=== PATIENT | male | born 1945 | race Caucasian/White ===

== ENCOUNTER 2016-06-05 11:26 | Inpatient (IN) | payer MEDICARE, BC, OTHER ==
--- NOTE | 2016-06-05 13:10 | CR ---
Chest 2V HISTORY: Atrial fibrillation COMPARISON: 04/29/2015. FINDINGS: Linear scar peripheral left midlung zone. Obscured left cardiac border compatible with lef t lingular infiltrate. The right lung is clear. Mild hyperinflation. Impression: Infiltrate obscuring the left cardiac border new from the previous study.
[2016-06-05] MEDS: Dextrose 5%-0.9% NaCl 1,000 ML IV SCH (15:46)
[2016-06-05] MEDS: Levofloxacin/Dextrose 5%-Water 500 MG in Premix Bag 1 BAG IV SCH (15:47)
[2016-06-05] MEDS ORDERED: Sodium Chloride 0.9% 500 ML IV ONE (17:00)
[2016-06-05] MEDS: cefTRIAXone 1 GM in Sodium Chloride 0.9% 50 ML IV SCH (17:02)
[2016-06-05] MEDS ORDERED: Digoxin 500 MCG/2 ML Amp IVPUSH ONE (18:06)
[2016-06-05] MEDS ORDERED: Acetaminophen 325 MG Tab PO PRN (18:07)
[2016-06-05] MEDS: Albuterol/Ipratropium 3.0-0.5 MG/3 ML Neb Soln INH SCH (21:03)
--- NOTE | 2016-06-05 21:40 | PCM.HP ---
H&P History of Present Illness - General Date of Service: 06/05/16 Source of Information: Patient History Limitations: Reports: No limitations, Respiratory distress - History of Present Illness Initial Comments - Free Text/Narative: Yoni came into the office not feeling well stating that he was short of breath and he was using multiple inhalers in order to get his air. He was very weak and very dizzy when he would stand up. I had seen him last week and he was in atrial fibrillation with tachycardic response. I changed his medicine started him on anticoagulation medication. His blood pressure in the office was down to 80 systolic and very weak when he would stand. I feel he was not safe to drive home and brought into the hospital. He said his heart has been irregular for years but the cardiograms in the office have always been normal sinus rhythm. He states that the Dulera would make his heart go fast but he would help his breathing dramatically. Onset of Symptoms: Reports: gradual Duration of Symptoms: Reports: Day(s): Location: Reports: chest Severity: severe Improves with: Reports: Rest Worsens with: Reports: Movement Context: Reports: activity/exercise, exertion Associated Symptoms: Reports: shortness of breath, weakness - Related Data Allergies/Adverse Reactions: Allergies Allergy/AdvReac Type Severity Reaction Status Date / Time bee sting Allergy Swelling Uncoded 10/05/13 14:03 Home Medications: Home Meds Betamethasone Dipropionate [Diprosone 0.05% Oint] 1 applic TOP DAILY 10/05/13 [ History] Lisinopril 20 mg PO DAILY 10/05/13 [History] Tiotropium [Spiriva Handihaler] 1 puff INH DAILY 10/05/13 [History] Albuterol/Ipratropium [DuoNeb 3.0-0.5 MG/3 ML] 1 inhalation INH QID 06/05/16 [ History] Apixaban [Eliquis] 5 mg PO DAILY 06/05/16 [History] Diltiazem [Cardizem] 60 mg PO DAILY 06/05/16 [History] Past Medical History HEENT History: Reports: Impaired vision Cardiovascular History: Reports: Afib, Hypertension Respiratory History: Reports: COPD Musculoskeletal History: Reports: Fracture, Osteoarthritis, Other (see below) Other Musculoskeletal History: joint pain Dermatologic History: Reports: Psoriasis - Infectious Disease History Infectious Disease History: Reports: Chicken pox, Measles, Mumps, Rubella Social & Family History - Tobacco Use Smoking Status *Q: Former Smoker Years of Tobacco use: 20 Packs/Tins Daily: 1 Used Tobacco, but Quit: Yes Month Tobacco Last Used: 1979 Second Hand Smoke Exposure: No - Caffeine Use Caffeine Use: Reports: Coffee Caffeine Use Comment: 2. cups - Alcohol Use Days Per Week of Alcohol Use: 0 Number of Drinks Per Day: 3 Total Drinks Per Week: 0 - Recreational Drug Use Recreational Drug Use: No H&P Review of Systems - Review of Systems: Review Of Systems: See Below General: Reports: malaise, weakness, fatigue, weight loss HEENT: Reports: no symptoms Pulmonary: Reports: shortness of breath Cardiovascular: Reports: dyspnea on exertion, lightheadedness Gastrointestinal: Reports: No symptoms Genitourinary: Reports: no symptoms Musculoskeletal: Reports: shoulder pain Skin: Reports: no symptoms Psychiatric: Reports: no symptoms Immunologic: Reports: no symptoms Exam - Exam Exam: See Below - Vital Signs Vital Signs: Last Vital Signs Temp 100.1 F 06/05/16 17:55 Pulse 129 H 06/05/16 18:21 Resp 23 H 06/05/16 17:55 BP 98/75 06/05/16 17:55 Pulse Ox 94 L 06/05/16 17:55 Weight: 182 lb 5.156 oz - Exam General: severe distress HEENT: PERRLA, Hearing intact, Mucosa moist & pink, Nares patent, Normal nasal septum, Posterior pharynx clear, Conjunctiva clear, EOMI, EACs clear, TMs clear Neck: supple, trachea midline, 2 Lungs: Decreased breath sounds Cardiovascular: irregular rhythm, tachycardia Abdomen: normal bowel sounds, soft Back Exam: normal inspection Extremities: other (Pain to palpation left shoulder) Peripheral Pulses: 1+: radial (L), radial (R) Skin: warm, dry, intact Neurological: cranial nerves intact, reflexes equal bilateral, strength equal bilateral Neuro Extensive - Mental Status: alert, oriented x3, memory intact Neuro Extensive - Motor, Sensory, Reflexes: CN II-XII intact, abnormal gait Psychiatric: alert - Patient Data Lab Results last 24 hrs: Laboratory Results - last 24 hr 06/05/16 06/05/16 06/05/16 Range/Units 12:00 12:00 12:00 WBC 12.1 H (4.5-11.0) K/uL RBC 5.18 (4.30-5.90) M/uL Hgb 15.5 H (12.0-15.0) g/dL Hct 44.8 (40.0-54.0) % MCV 87 (80-98) fL MCH 30 (27-31) pg MCHC 35 (32-36) % Plt Count 242 (150-400) K/uL Neut % (Auto) 82 H (36-66) % Lymph % (Auto) 7 L (24-44) % [place] % (Auto) 10 H (2-6) % Eos % (Auto) 1 L (2-4) % Baso % (Auto) 0 (0-1) % Sodium 132 L (140-148) mmol/L Potassium 4.7 (3.6-5.2) mmol/L Chloride 95 L (100-108) mmol/L Carbon Dioxide 25 (21-32) mmol/L Anion Gap 16.7 H (5.0-14.0) mmol/L BUN 16 D (7-18) mg/dL Creatinine 1.1 (0.8-1.3) mg/dL Est Cr Clr Drug Dosing 64.27 mL/min Estimated GFR (MDRD) > 60 (>60) Glucose 118 H (74-106) mg/dL Calcium 8.7 (8.5-10.1) mg/dL Total Bilirubin 1.2 H D (0.2-1.0) mg/dL AST 34 (15-37) U/L ALT 45 (12-78) U/L Alkaline Phosphatase 56 (46-116) U/L Creatine Kinase 90 (39-308) U/L Troponin I < 0.017 (0.000-0.056) ng/mL Total Protein 7.8 (6.4-8.2) g/dL Albumin 3.2 L (3.4-5.0) g/dL Globulin 4.6 H (2.3-3.5) g/dL Albumin/Globulin Ratio 0.7 L (1.2-2.2) Urine Color Urine Appearance Urine pH (4.5-8.0) Ur Specific [place] (1.008-1.030) Urine Protein (NEGATIVE) mg/dL Urine Glucose (UA) (NEGATIVE) mg/dL Urine Ketones (NEGATIVE) mg/dL Urine Occult Blood (NEGATIVE) Urine Nitrite (NEGAITVE) Urine Bilirubin (NEGATIVE) Urine Urobilinogen (NORMAL) mg/dL Ur Leukocyte Esterase (NEGATIVE) Urine RBC (0-5) Urine WBC (0-5) Ur Epithelial Cells Amorphous Sediment Urine Bacteria Urine Mucus 06/05/16 Range/Units 14:58 WBC (4.5-11.0) K/uL RBC (4.30-5.90) M/uL Hgb (12.0-15.0) g/dL Hct (40.0-54.0) % MCV (80-98) fL MCH (27-31) pg MCHC (32-36) % Plt Count (150-400) K/uL Neut % (Auto) (36-66) % Lymph % (Auto) (24-44) % [place] % (Auto) (2-6) % Eos % (Auto) (2-4) % Baso % (Auto) (0-1) % Sodium (140-148) mmol/L Potassium (3.6-5.2) mmol/L Chloride (100-108) mmol/L Carbon Dioxide (21-32) mmol/L Anion Gap (5.0-14.0) mmol/L BUN (7-18) mg/dL Creatinine (0.8-1.3) mg/dL Est Cr Clr Drug Dosing mL/min Estimated GFR (MDRD) (>60) Glucose (74-106) mg/dL Calcium (8.5-10.1) mg/dL Total Bilirubin (0.2-1.0) mg/dL AST (15-37) U/L ALT (12-78) U/L Alkaline Phosphatase (46-116) U/L Creatine Kinase (39-308) U/L Troponin I (0.000-0.056) ng/mL Total Protein (6.4-8.2) g/dL Albumin (3.4-5.0) g/dL Globulin (2.3-3.5) g/dL Albumin/Globulin Ratio (1.2-2.2) Urine Color [place] Urine Appearance Clear Urine pH 6.0 (4.5-8.0) Ur Specific [place] 1.015 (1.008-1.030) Urine Protein Negative (NEGATIVE) mg/dL Urine Glucose (UA) Normal (NEGATIVE) mg/dL Urine Ketones 15 H (NEGATIVE) mg/dL Urine Occult Blood Negative (NEGATIVE) Urine Nitrite Negative (NEGAITVE) Urine Bilirubin Small (NEGATIVE) Urine Urobilinogen 8 (NORMAL) mg/dL Ur Leukocyte Esterase Negative (NEGATIVE) Urine RBC Not seen (0-5) Urine WBC 0-5 (0-5) Ur Epithelial Cells Few Amorphous Sediment Not seen Urine Bacteria Moderate Urine Mucus Moderate Result Diagrams: 06/05/16 12:00 06/05/16 12:00 Dank Results last 24 hrs: Microbiology 06/05/16 18:18 Gram Stain - Final Sputum - Expectorated *Q Meaningful Use (ADM) - VTE *Q VTE Criteria *Q: - Stroke *Q Stroke Criteria *Q: - AMI *Q AMI Criteria *Q: Problem List Initiated/Reviewed/Updated: Yes Orders Last 24hrs: Active Orders 24 hr Category Date Time Status EKG Documentation Completion [RC] ASDIRECTED Care 06/05/16 20:38 Active Regular Diet [DIET] Diet 06/05/16 Dinner Active Echo Comp wo Cont [US] Urgent Exams 06/05/16 11:49 Taken CKMB [CHEM] Stat Lab 06/05/16 20:55 Received CULTURE BLOOD [BC] Urgent Lab 06/05/16 15:35 Received CULTURE BLOOD [BC] Urgent Lab 06/05/16 15:45 Received CULTURE RESPIRATORY + SMEAR [RM] Routine Lab 06/05/16 18:18 Results TROPONIN I [CHEM] Stat Lab 06/05/16 20:55 Received Acetaminophen [Tylenol] Med 06/05/16 18:07 Active 650 mg PO Q4H PRN Albuterol/Ipratropium [DuoNeb 3.0-0.5 MG/3 ML] Med 06/05/16 21:00 Active 3 ml INH QIDRT Apixaban [Eliquis] Med 06/06/16 09:00 Active 5 mg PO DAILY Betamethasone Dipropionate [Diprosone 0.05% Oint] Med 06/06/16 09:00 Active 0 gm TOP DAILY Dextrose 5%-0.9% NaCl [Dextrose 5%-Normal Saline] 1,000 Med 06/05/16 15:30 Active ml IV ASDIRECTED Levofloxacin/Dextrose 5%-Water [Levaquin in D5W 500 MG/ Med 06/05/16 15:30 Active 100 ML] 500 mg Premix Bag 1 bag IV Q24H Tiotropium [Spiriva HandiHaler] Med 06/06/16 07:00 Active 18 mcg INH DAILY@0700 cefTRIAXone [Rocephin] 1 gm Med 06/05/16 17:00 Active Sodium Chloride 0.9% [Normal Saline] 50 ml IV Q24H Blood Culture x2 Reflex Set [OM.PC] Urgent Oth 06/05/16 15:27 Ordered EKG 12 Lead [EK] Routine Ther 06/05/16 11:45 Ordered EKG 12 Lead [EK] Stat Ther 06/05/16 20:37 Ordered Medication Orders Acetaminophen (Tylenol) 650 mg PO Q4H PRN PRN Reason: Pain Last Admin: 06/05/16 18:23 Dose: 650 mg Albuterol/Ipratropium (Duoneb 3.0-0.5 Mg/3 Ml) 3 ml INH QIDRT [facility] Last Admin: 06/05/16 21:03 Dose: 3 ml Apixaban (Eliquis) 5 mg PO DAILY [facility] Betamethasone Dipropionate (Diprosone 0.05% Oint) 0 gm TOP DAILY [facility] Dextrose/Sodium Chloride (Dextrose 5%-Normal Saline) 1,000 mls @ 75 mls/hr IV ASDIRECTED [facility] Last Admin: 06/05/16 15:46 Dose: 75 mls/hr Levofloxacin/Dextrose 500 mg/ (Premix) 100 mls @ 100 mls/hr IV Q24H [facility] Last Admin: 06/05/16 15:47 Dose: 100 mls/hr Ceftriaxone Sodium 1 gm/ (Sodium Chloride) 50 mls @ 100 mls/hr IV Q24H [facility] Last Admin: 06/05/16 17:02 Dose: 100 mls/hr Tiotropium [place] (Spiriva Handihaler) 18 mcg INH DAILY@0700 [facility] Assessment/Plan Comment:: Assessment/plan: #1. Atrial fibrillation with tachycardic response. It is unknown the chronicity of the atrial fibrillation but adequate and was started. I put him in the hospital we'll monitor him and get his blood pressure up and is extremely low and he was hypotensive. #2. Asthma. Asthma has been a chronic condition we'll need to change his inhalers. #3. Pneumonia. Chest x-ray was done which showed infiltrate consistent with pneumonia will start treating him with antibiotics. His white count is elevated 12.1 with a left shift 82% segs.
[2016-06-05] MEDS ORDERED: Digoxin 125 MCG Tab PO ONE (22:12)
[2016-06-05] MEDS: Acetaminophen/HYDROcodone 325-5 MG Tab PO PRN (23:19)
[2016-06-06] MEDS: Albuterol/Ipratropium 3.0-0.5 MG/3 ML Neb Soln INH SCH ×4 (07:17→20:51)
[2016-06-06] MEDS: Tiotropium Inhaler 18 MCG Inhalation Powder Cap Kit of 5 INH SCH (07:18)
[2016-06-06] MEDS ORDERED: Flecainide 50 MG Tab PO SCH (09:10)
[2016-06-06] MEDS: Apixaban 5 MG Tab PO SCH (09:52)
[2016-06-06] MEDS: Digoxin 125 MCG Tab PO SCH (12:52)
[2016-06-06] MEDS: Dextrose 5%-0.9% NaCl 1,000 ML IV SCH (14:14)
[2016-06-06] MEDS: Levofloxacin/Dextrose 5%-Water 500 MG in Premix Bag 1 BAG IV SCH (15:26)
[2016-06-06] MEDS: cefTRIAXone 1 GM in Sodium Chloride 0.9% 50 ML IV SCH (16:45)
[2016-06-06] MEDS ORDERED: Sodium Chloride 0.9% 250 ML IV ONE (17:05)
[2016-06-06] MEDS: Metoprolol Tartrate 25 MG Tab PO SCH (17:47)
[2016-06-06] MEDS ORDERED: Diltiazem 25 MG/5 ML SDV IVPUSH ONE (17:54)
[2016-06-06] MEDS: Flecainide 50 MG Tab PO SCH (20:51)
[2016-06-06] MEDS: Acetaminophen/HYDROcodone 325-5 MG Tab PO PRN (21:09)
--- NOTE | 2016-06-06 22:05 | PCM.PN ---
- General Info Date of Service: 06/06/16 Functional Status: Reports: pain controlled - Review of Systems General: Reports: weakness, fatigue HEENT: Reports: no symptoms Pulmonary: Reports: wheezing Cardiovascular: Reports: palpitations, dyspnea on exertion Gastrointestinal: Reports: No symptoms Genitourinary: Reports: no symptoms Musculoskeletal: Reports: no symptoms Skin: Reports: no symptoms Neurological: Reports: no symptoms Psychiatric: Reports: no symptoms - Patient Data Vitals - most recent: Last Vital Signs Temp 100.6 F 06/06/16 21:00 Pulse 99 06/06/16 21:00 Resp 22 H 06/06/16 21:00 BP 121/75 06/06/16 21:00 Pulse Ox 91 L 06/06/16 21:00 Weight - most recent: 182 lb 5.156 oz I&O - last 24 hours: Intake & Output 06/06/16 06/06/16 06/06/16 06:59 14:59 22:59 Intake Total 240 1894 Output Total 900 650 425 Balance -900 -410 1469 Dank Results last 24 hrs: Microbiology 06/05/16 15:45 Aerobic Blood Culture - Preliminary Blood - Arm, Right NO GROWTH AFTER 1 DAY Anaerobic Blood Culture - Preliminary NO GROWTH AFTER 1 DAY 06/05/16 15:35 Aerobic Blood Culture - Preliminary Blood - Arm, Right NO GROWTH AFTER 1 DAY Anaerobic Blood Culture - Preliminary NO GROWTH AFTER 1 DAY 06/05/16 18:18 Gram Stain - Final Sputum - Expectorated Med Orders - Current: Current Medications Acetaminophen (Tylenol) 650 mg PO Q4H PRN PRN Reason: Pain Last Admin: 06/05/16 18:23 Dose: 650 mg Acetaminophen/Hydrocodone Bitart ([place] 325-5 Mg) 1 tab PO Q6H PRN PRN Reason: Pain Last Admin: 06/06/16 21:09 Dose: 1 tab Albuterol/Ipratropium (Duoneb 3.0-0.5 Mg/3 Ml) 3 ml INH QIDRT [facility] Last Admin: 06/06/16 20:51 Dose: 3 ml Apixaban (Eliquis) 5 mg PO DAILY [facility] Last Admin: 06/06/16 09:52 Dose: 5 mg Betamethasone Dipropionate (Diprosone 0.05% Oint) 0 gm TOP DAILY [facility] Last Admin: 06/06/16 09:52 Dose: 1 applic Digoxin (Lanoxin) 250 mcg PO DAILY@1300 [facility] Last Admin: 06/06/16 12:52 Dose: 250 mcg Flecainide Acetate (Tambocor) 100 mg PO BID [facility] Last Admin: 06/06/16 20:51 Dose: 100 mg Dextrose/Sodium Chloride (Dextrose 5%-Normal Saline) 1,000 mls @ 75 mls/hr IV ASDIRECTED [facility] Last Admin: 06/06/16 14:14 Dose: 75 mls/hr Ceftriaxone Sodium 1 gm/ (Sodium Chloride) 50 mls @ 100 mls/hr IV Q24H [facility] Last Admin: 06/06/16 16:45 Dose: 100 mls/hr Metoprolol Tartrate (Lopressor) 12.5 mg PO Q12H [facility] Last Admin: 06/06/16 17:47 Dose: 12.5 mg Tiotropium [place] (Spiriva Handihaler) 18 mcg INH DAILY@0700 [facility] Last Admin: 06/06/16 07:18 Dose: 18 mcg Discontinued Medications Digoxin (Lanoxin) 500 mcg IVPUSH ONETIME ONE Stop: 06/05/16 18:07 Last Admin: 06/05/16 18:21 Dose: 500 mcg Digoxin (Lanoxin) 500 mcg PO ONETIME ONE Stop: 06/05/16 22:13 Last Admin: 06/05/16 23:19 Dose: 500 mcg Diltiazem HCl (Diltiazem) 10 mg IVPUSH ONETIME ONE Stop: 06/06/16 17:55 Last Admin: 06/06/16 18:23 Dose: 10 mg Flecainide Acetate (Tambocor) 50 mg PO BID [facility] Last Admin: 06/06/16 09:52 Dose: 50 mg Levofloxacin/Dextrose 500 mg/ (Premix) 100 mls @ 100 mls/hr IV Q24H [facility] Last Admin: 06/06/16 15:26 Dose: 100 mls/hr Sodium Chloride (Normal Saline) 500 mls @ 250 mls/hr IV .BOLUS ONE Stop: 06/05/16 18:59 Last Admin: 06/05/16 17:13 Dose: 250 mls/hr Sodium Chloride (Normal Saline) 250 mls @ 500 mls/hr IV .BOLUS ONE Stop: 06/06/16 17:34 Last Admin: 02/28/17 17:31 Dose: 500 mls/hr - Exam General: alert, oriented HEENT: Pupils equal, Pupils reactive, EOMI, Mucous membr. moist/pink Neck: supple Lungs: Clear to auscultation, Normal respiratory effort Cardiovascular: irregular rhythm, tachycardia Back Exam: normal inspection, full range of motion Extremities: other (There is pain to palpation of the left shoulder.) - Problem List Review Problem List Initiated/Reviewed/Updated: Yes - My Orders Last 24 Hours: My Active Orders 06/05/16 21:00 Albuterol/Ipratropium [DuoNeb 3.0-0.5 MG/3 ML] 3 ml INH QIDRT 06/05/16 22:01 Acetaminophen/HYDROcodone [[place] 325-5 MG] 1 tab PO Q6H PRN 06/06/16 03:09 PT Evaluation and Treatment [CONS] Routine 06/06/16 07:00 Tiotropium [Spiriva HandiHaler] 18 mcg INH DAILY@0700 06/06/16 09:00 Apixaban [Eliquis] 5 mg PO DAILY Betamethasone Dipropionate [Diprosone 0.05% Oint] 0 gm TOP DAILY 06/06/16 13:00 Digoxin [Lanoxin] 250 mcg PO DAILY@1300 06/06/16 18:00 Metoprolol Tartrate [Lopressor] 12.5 mg PO Q12H 06/06/16 21:00 Flecainide [Tambocor] 100 mg PO BID 06/07/16 05:00 CXR [Chest 1V Frontal] [CR] Routine BASIC METABOLIC PANEL,BMP [CHEM] Routine CBC WITH AUTO DIFF [HEME] Routine - Plan Plan:: Assessment/plan: #1. Atrial fibrillation with tachycardic response. It is unknown the chronicity of the atrial fibrillation. He is presently on ELOQUIS. He has been tachycardic most of the day even though we started Lanoxin last night. This morning I did start him on flscainide 50 mg this morning and then increased up to 100 mg twice daily after speaking with a entry level project coordinator. I also challenge him with extra fluid and then started him on 12.5 mg of Lopressor twice daily and then gave him Cardizem bolus and then started him on a continuos drip. Within an hour his heart rate dropped but blood pressure is running about 100 which is close to what it was before the medicine was given. I also stopped the Levaquin because of the danger of QT interval danger. I will repeat the chest x-ray in the morning. #2. Asthma. Asthma has been a chronic condition we'll need to change his inhalers. #3. Pneumonia. Chest x-ray was done which showed infiltrate consistent with pneumonia will start treating him with antibiotics. His white count is elevated 12.1 with a left shift 82% segs.
[2016-06-07] MEDS: Dextrose 5%-0.9% NaCl 1,000 ML IV SCH ×2 (05:37→19:00)
[2016-06-07] MEDS: Metoprolol Tartrate 25 MG Tab PO SCH ×3 (05:49→20:30)
[2016-06-07] MEDS: Albuterol/Ipratropium 3.0-0.5 MG/3 ML Neb Soln INH SCH ×3 (07:13→14:46)
[2016-06-07] MEDS: Tiotropium Inhaler 18 MCG Inhalation Powder Cap Kit of 5 INH SCH (07:14)
--- NOTE | 2016-06-07 08:40 | CR ---
Chest 1V Frontal HISTORY: Pneumonia COMPARISON: 06/05/2016. FINDINGS: The infiltrate adjacent to the left cardiac border appears to have resolved. Rotated film to the right. Stable cardiac size. No effusions or new infiltrates. Impression: Resolved left lingular infiltrate.
[2016-06-07] MEDS: Apixaban 5 MG Tab PO SCH (09:53)
[2016-06-07] MEDS: Flecainide 50 MG Tab PO SCH ×2 (09:53→20:30)
[2016-06-07] MEDS ORDERED: Metoprolol Tartrate 25 MG Tab PO SCH ×2 (10:00→21:00)
[2016-06-07] MEDS: Fludrocortisone 0.1 MG Tab PO SCH (11:10)
[2016-06-07] MEDS: Digoxin 125 MCG Tab PO SCH (13:14)
[2016-06-07] MEDS: Levalbuterol HCl 1.25 MG/3 ML Neb NEB SCH (20:30)
--- NOTE | 2016-06-07 23:28 | PCM.PN ---
- General Info Date of Service: 06/07/16 Subjective Update: He did have an episode of tachycardia again and for some reason the metoprolol was not given as ordered I restarted this. I also increased flecainide. He was relatively asymptomatic throughout this entire time he said. - Review of Systems General: Reports: weakness, fatigue HEENT: Reports: no symptoms Pulmonary: Reports: no symptoms Cardiovascular: Reports: palpitations, dyspnea on exertion Gastrointestinal: Reports: No symptoms Genitourinary: Reports: no symptoms Musculoskeletal: Reports: shoulder pain Skin: Reports: no symptoms Neurological: Reports: no symptoms (no) Psychiatric: Reports: depression - Patient Data Vitals - most recent: Last Vital Signs Temp 98.7 F 06/07/16 20:00 Pulse 126 H 06/07/16 20:30 Resp 14 06/07/16 20:00 BP 115/69 06/07/16 20:30 Pulse Ox 92 L 06/07/16 20:00 Weight - most recent: 182 lb 5.156 oz I&O - last 24 hours: Intake & Output 06/07/16 06/07/16 06/08/16 14:59 22:59 06:59 Intake Total 1450 Output Total 300 Balance 1150 Lab Results last 24 hrs: Laboratory Results - last 24 hr 06/07/16 06/07/16 Range/Units 06:09 06:09 WBC 8.1 (4.5-11.0) K/uL RBC 4.66 (4.30-5.90) M/uL Hgb 14.1 (12.0-15.0) g/dL Hct 41.5 (40.0-54.0) % MCV 89 (80-98) fL MCH 30 (27-31) pg MCHC 34 (32-36) % Plt Count 233 (150-400) K/uL Neut % (Auto) 68 H (36-66) % Lymph % (Auto) 19 L (24-44) % [place] % (Auto) 10 H (2-6) % Eos % (Auto) 3 (2-4) % Baso % (Auto) 1 (0-1) % Sodium 135 L (140-148) mmol/L Potassium 4.2 (3.6-5.2) mmol/L Chloride 101 (100-108) mmol/L Carbon Dioxide 28 (21-32) mmol/L Anion Gap 10.2 (5.0-14.0) mmol/L BUN 8 (7-18) mg/dL Creatinine 0.9 (0.8-1.3) mg/dL Est Cr Clr Drug Dosing 78.29 mL/min Estimated GFR (MDRD) > 60 (>60) Glucose 98 (74-106) mg/dL Calcium 8.5 (8.5-10.1) mg/dL Dank Results last 24 hrs: Microbiology 06/05/16 15:45 Aerobic Blood Culture - Preliminary Blood - Arm, Right NO GROWTH AFTER 2 DAYS Anaerobic Blood Culture - Preliminary NO GROWTH AFTER 2 DAYS 06/05/16 15:35 Aerobic Blood Culture - Preliminary Blood - Arm, Right NO GROWTH AFTER 2 DAYS Anaerobic Blood Culture - Preliminary NO GROWTH AFTER 2 DAYS 06/05/16 18:18 Gram Stain - Final Sputum - Expectorated Respiratory Culture - Preliminary REDUCED NORMAL RESPIRATORY IVA Med Orders - Current: Current Medications Acetaminophen (Tylenol) 650 mg PO Q4H PRN PRN Reason: Pain Last Admin: 06/05/16 18:23 Dose: 650 mg Acetaminophen/Hydrocodone Bitart ([place] 325-5 Mg) 1 tab PO Q6H PRN PRN Reason: Pain Last Admin: 06/06/16 21:09 Dose: 1 tab Apixaban (Eliquis) 5 mg PO DAILY [facility] Last Admin: 06/07/16 09:53 Dose: 5 mg Betamethasone Dipropionate (Diprosone 0.05% Oint) 0 gm TOP DAILY [facility] Last Admin: 06/07/16 09:53 Dose: 1 applic Digoxin (Lanoxin) 250 mcg PO DAILY@1300 [facility] Last Admin: 06/07/16 13:14 Dose: 250 mcg Flecainide Acetate (Tambocor) 100 mg PO TID [facility] Last Admin: 06/07/16 20:30 Dose: 100 mg Fludrocortisone Acetate (Florinef) 0.1 mg PO WITHBREAKFAST [facility] Last Admin: 06/07/16 11:10 Dose: 0.1 mg Dextrose/Sodium Chloride (Dextrose 5%-Normal Saline) 1,000 mls @ 75 mls/hr IV ASDIRECTED [facility] Last Admin: 06/07/16 19:00 Dose: 75 mls/hr Levalbuterol HCl (Xopenex) 1.25 mg NEB QIDRT [facility] Last Admin: 06/07/16 20:30 Dose: 1.25 mg Metoprolol Tartrate (Lopressor) 12.5 mg PO BID [facility] Last Admin: 06/07/16 20:30 Dose: 12.5 mg Tiotropium [place] (Spiriva Handihaler) 18 mcg INH DAILY@0700 [facility] Last Admin: 06/07/16 07:14 Dose: 18 mcg Discontinued Medications Albuterol/Ipratropium (Duoneb 3.0-0.5 Mg/3 Ml) 3 ml INH QIDRT [facility] Last Admin: 06/07/16 14:46 Dose: 3 ml Digoxin (Lanoxin) 500 mcg IVPUSH ONETIME ONE Stop: 06/05/16 18:07 Last Admin: 06/05/16 18:21 Dose: 500 mcg Digoxin (Lanoxin) 500 mcg PO ONETIME ONE Stop: 06/05/16 22:13 Last Admin: 06/05/16 23:19 Dose: 500 mcg Diltiazem HCl (Diltiazem) 10 mg IVPUSH ONETIME ONE Stop: 06/06/16 17:55 Last Admin: 06/06/16 18:23 Dose: 10 mg Flecainide Acetate (Tambocor) 50 mg PO BID [facility] Last Admin: 06/06/16 09:52 Dose: 50 mg Flecainide Acetate (Tambocor) 100 mg PO BID [facility] Last Admin: 06/07/16 09:53 Dose: 100 mg Levofloxacin/Dextrose 500 mg/ (Premix) 100 mls @ 100 mls/hr IV Q24H [facility] Last Admin: 06/06/16 15:26 Dose: 100 mls/hr Ceftriaxone Sodium 1 gm/ (Sodium Chloride) 50 mls @ 100 mls/hr IV Q24H [facility] Last Admin: 06/06/16 16:45 Dose: 100 mls/hr Sodium Chloride (Normal Saline) 500 mls @ 250 mls/hr IV .BOLUS ONE Stop: 06/05/16 18:59 Last Admin: 06/05/16 17:13 Dose: 250 mls/hr Sodium Chloride (Normal Saline) 250 mls @ 500 mls/hr IV .BOLUS ONE Stop: 06/06/16 17:34 Last Admin: 06/06/16 17:31 Dose: 500 mls/hr Metoprolol Tartrate (Lopressor) 12.5 mg PO Q12H [facility] Last Admin: 06/07/16 05:49 Dose: 12.5 mg Metoprolol Tartrate (Lopressor) 25 mg PO BID [facility] Metoprolol Tartrate (Lopressor) 12.5 mg PO BID NED - Exam General: alert, oriented, cooperative, mild distress HEENT: Pupils equal Neck: supple Lungs: Clear to auscultation Cardiovascular: irregular rhythm Abdomen: bowel sounds present, soft, no tenderness Back Exam: normal inspection Extremities: other (Shoulder pain, left) Peripheral Pulses: 1+: radial (L), radial (R) Skin: warm, dry, intact Neurological: no new focal deficit Psy/Mental Status: alert, normal affect, normal mood - Problem List Review Problem List Initiated/Reviewed/Updated: Yes - My Orders Last 24 Hours: My Active Orders 06/07/16 10:15 Fludrocortisone [Florinef] 0.1 mg PO WITHBREAKFAST 06/07/16 15:54 RT Aerosol Therapy [RC] ASDIRECTED 06/07/16 16:15 Metoprolol Tartrate [Lopressor] 12.5 mg PO BID 06/07/16 21:00 Flecainide [Tambocor] 100 mg PO TID Levalbuterol HCl [Xopenex] 1.25 mg NEB QIDRT - Plan Plan:: Assessment/plan: #1. Atrial fibrillation with tachycardic response. It is unknown the chronicity of the atrial fibrillation. He is presently on ELOQUIS. He has been tachycardic I restarted metoprolol as if for some reason was stopped as blood pressure and pulse was stable.. This morning I did increase him on flscainide this morning. The x-ray did not confirm pneumonia hasn't went through this with the radiologist. So I have stopped the antibiotics. #2. Asthma. Asthma has been a chronic condition we'll need to change his inhalers. #3. Pneumonia. not confirmed as it was not a pneumonic infiltrate probably just atelectasis.
[2016-06-08] MEDS: Levalbuterol HCl 1.25 MG/3 ML Neb NEB SCH ×4 (07:29→19:59)
[2016-06-08] MEDS: Tiotropium Inhaler 18 MCG Inhalation Powder Cap Kit of 5 INH SCH (07:34)
[2016-06-08] MEDS: Fludrocortisone 0.1 MG Tab PO SCH (07:51)
[2016-06-08] MEDS: Dextrose 5%-0.9% NaCl 1,000 ML IV SCH ×2 (08:22→21:28)
[2016-06-08] MEDS ORDERED: Metoprolol Tartrate 25 MG Tab PO SCH (09:00)
[2016-06-08] MEDS: Apixaban 5 MG Tab PO SCH (09:24)
[2016-06-08] MEDS: Flecainide 50 MG Tab PO SCH ×3 (09:24→21:28)
[2016-06-08] MEDS: Metoprolol Tartrate 25 MG Tab PO SCH ×2 (10:17→21:29)
[2016-06-08] MEDS: Digoxin 125 MCG Tab PO SCH (13:10)
--- NOTE | 2016-06-08 18:20 | PCM.PN ---
- General Info Date of Service: 06/08/16 Subjective Update: Is feeling better today his blood sugar this morning was in the teens then dropped. I was going to increase the metoprolol but then stopped once the blood pressure started to fall. He is wanting to go home tomorrow. - Review of Systems General: Reports: weakness HEENT: Reports: no symptoms Pulmonary: Reports: shortness of breath Cardiovascular: Reports: dyspnea on exertion Gastrointestinal: Reports: Constipation Genitourinary: Reports: no symptoms Musculoskeletal: Reports: no symptoms Skin: Reports: no symptoms Neurological: Reports: no symptoms Psychiatric: Reports: anxiety - Patient Data Vitals - most recent: Last Vital Signs Temp 98.2 F 06/08/16 18:00 Pulse 94 06/08/16 14:46 Resp 22 H 06/08/16 18:00 BP 111/77 06/08/16 18:00 Pulse Ox 93 L 06/08/16 18:00 Weight - most recent: 182 lb 5.156 oz I&O - last 24 hours: Intake & Output 06/08/16 06/08/16 06/08/16 06:59 14:59 22:59 Intake Total 1021 1852 Output Total 600 425 450 Balance 421 -425 1402 Lab Results last 24 hrs: Laboratory Results - last 24 hr 06/08/16 Range/Units 12:01 Digoxin 1.03 (0.90-2.00) ng/mL Dank Results last 24 hrs: Microbiology 06/05/16 15:45 Aerobic Blood Culture - Preliminary Blood - Arm, Right NO GROWTH AFTER 3 DAYS Anaerobic Blood Culture - Preliminary NO GROWTH AFTER 3 DAYS 06/05/16 15:35 Aerobic Blood Culture - Preliminary Blood - Arm, Right NO GROWTH AFTER 3 DAYS Anaerobic Blood Culture - Preliminary NO GROWTH AFTER 3 DAYS 06/05/16 18:18 Gram Stain - Final Sputum - Expectorated Respiratory Culture - Final REDUCED NORMAL RESPIRATORY IVA Med Orders - Current: Current Medications Acetaminophen (Tylenol) 650 mg PO Q4H PRN PRN Reason: Pain Last Admin: 06/05/16 18:23 Dose: 650 mg Acetaminophen/Hydrocodone Bitart ([place] 325-5 Mg) 1 tab PO Q6H PRN PRN Reason: Pain Last Admin: 06/06/16 21:09 Dose: 1 tab Apixaban (Eliquis) 5 mg PO DAILY END Last Admin: 06/08/16 09:24 Dose: 5 mg Betamethasone Dipropionate (Diprosone 0.05% Oint) 0 gm TOP DAILY [facility] Last Admin: 06/08/16 09:24 Dose: 1 applic Digoxin (Lanoxin) 250 mcg PO DAILY@1300 [facility] Last Admin: 06/08/16 13:10 Dose: 250 mcg Flecainide Acetate (Tambocor) 100 mg PO TID [facility] Last Admin: 06/08/16 13:10 Dose: 100 mg Fludrocortisone Acetate (Florinef) 0.1 mg PO WITHBREAKFAST [facility] Last Admin: 06/08/16 07:51 Dose: 0.1 mg Dextrose/Sodium Chloride (Dextrose 5%-Normal Saline) 1,000 mls @ 75 mls/hr IV ASDIRECTED [facility] Last Admin: 06/08/16 08:22 Dose: 75 mls/hr Levalbuterol HCl (Xopenex) 1.25 mg NEB QIDRT [facility] Last Admin: 06/08/16 14:45 Dose: 1.25 mg Metoprolol Tartrate (Lopressor) 12.5 mg PO BID [facility] Last Admin: 06/08/16 10:17 Dose: 12.5 mg Tiotropium [place] (Spiriva Handihaler) 18 mcg INH DAILY@0700 [facility] Last Admin: 06/08/16 07:34 Dose: 18 mcg Discontinued Medications Albuterol/Ipratropium (Duoneb 3.0-0.5 Mg/3 Ml) 3 ml INH QIDRT [facility] Last Admin: 06/07/16 14:46 Dose: 3 ml Digoxin (Lanoxin) 500 mcg IVPUSH ONETIME ONE Stop: 06/05/16 18:07 Last Admin: 06/05/16 18:21 Dose: 500 mcg Digoxin (Lanoxin) 500 mcg PO ONETIME ONE Stop: 06/05/16 22:13 Last Admin: 06/05/16 23:19 Dose: 500 mcg Diltiazem HCl (Diltiazem) 10 mg IVPUSH ONETIME ONE Stop: 06/06/16 17:55 Last Admin: 06/06/16 18:23 Dose: 10 mg Flecainide Acetate (Tambocor) 50 mg PO BID [facility] Last Admin: 06/06/16 09:52 Dose: 50 mg Flecainide Acetate (Tambocor) 100 mg PO BID [facility] Last Admin: 06/07/16 09:53 Dose: 100 mg Levofloxacin/Dextrose 500 mg/ (Premix) 100 mls @ 100 mls/hr IV Q24H [facility] Last Admin: 06/06/16 15:26 Dose: 100 mls/hr Ceftriaxone Sodium 1 gm/ (Sodium Chloride) 50 mls @ 100 mls/hr IV Q24H [facility] Last Admin: 06/06/16 16:45 Dose: 100 mls/hr Sodium Chloride (Normal Saline) 500 mls @ 250 mls/hr IV .BOLUS ONE Stop: 06/05/16 18:59 Last Admin: 06/05/16 17:13 Dose: 250 mls/hr Sodium Chloride (Normal Saline) 250 mls @ 500 mls/hr IV .BOLUS ONE Stop: 06/06/16 17:34 Last Admin: 06/06/16 17:31 Dose: 500 mls/hr Metoprolol Tartrate (Lopressor) 12.5 mg PO Q12H [facility] Last Admin: 06/07/16 05:49 Dose: 12.5 mg Metoprolol Tartrate (Lopressor) 25 mg PO BID [facility] Metoprolol Tartrate (Lopressor) 12.5 mg PO BID [facility] Metoprolol Tartrate (Lopressor) 12.5 mg PO BID [facility] Last Admin: 06/07/16 20:30 Dose: 12.5 mg Metoprolol Tartrate (Lopressor) 25 mg PO BID [facility] - Exam General: alert, oriented HEENT: Pupils equal Neck: supple Lungs: Clear to auscultation, Normal respiratory effort Cardiovascular: irregular rhythm, tachycardia Abdomen: bowel sounds present, soft, no tenderness, no distension Extremities: no edema Peripheral Pulses: 1+: radial (L), radial (R) Skin: warm, dry, intact Psy/Mental Status: anxious - Problem List Review Problem List Initiated/Reviewed/Updated: Yes - My Orders Last 24 Hours: My Active Orders 06/07/16 21:00 Flecainide [Tambocor] 100 mg PO TID Levalbuterol HCl [Xopenex] 1.25 mg NEB QIDRT 06/08/16 10:00 Metoprolol Tartrate [Lopressor] 12.5 mg PO BID 06/09/16 07:00 Myocardial Perf Spect Multi [NM] Routine 03/03/17 Breakfast Nothing Per Oral Diet [DIET] - Plan Plan:: Assessment/plan: #1. Atrial fibrillation with tachycardic response. It is unknown the chronicity of the atrial fibrillation. He is presently on ELOQUIS. He has been tachycardic I will continue with metoprolol. This morning I did increase him on flecainide this morning. The x-ray did not confirm pneumonia hasn't went through this with the radiologist. So I have stopped the antibiotics. #2. Asthma. Asthma has been a chronic condition we'll need to change his inhalers. #3. Pneumonia. not confirmed as it was not a pneumonic infiltrate probably just atelectasis.
[2016-06-08] MEDS: LORazepam 0.5 MG Tab PO SCH (19:59)
[2016-06-08] MEDS: busPIRone 10 MG Tab PO SCH (21:29)
[2016-06-09] MEDS ORDERED: Levalbuterol HCl 1.25 MG/3 ML Neb NEB ONE (01:00)
[2016-06-09] MEDS: Levalbuterol HCl 1.25 MG/3 ML Neb NEB SCH ×3 (01:06→10:37)
[2016-06-09] MEDS: Tiotropium Inhaler 18 MCG Inhalation Powder Cap Kit of 5 INH SCH (07:23)
[2016-06-09] MEDS: Apixaban 5 MG Tab PO SCH (10:53)
[2016-06-09] MEDS: Fludrocortisone 0.1 MG Tab PO SCH (10:54)
[2016-06-09] MEDS: busPIRone 10 MG Tab PO SCH (10:54)
[2016-06-09] MEDS: Flecainide 50 MG Tab PO SCH ×2 (10:54→13:33)
[2016-06-09] MEDS: LORazepam 0.5 MG Tab PO SCH (10:57)
[2016-06-09] MEDS: Metoprolol Tartrate 25 MG Tab PO SCH (11:55)
--- NOTE | 2016-06-09 12:00 | NM ---
Myocardial Perf Spect Multi HISTORY: Atrial fibrillation and shortness of breath. Technique: 10.95 mCi of technetium 99 Myoview was administered and a resting myocardial perfusion sc an was obtained. Patient was administered IV Lexiscan and 30.0 mCi of technetium 99 Myoview was admi nistered and a pharmacologic stress myocardial perfusion scan was obtained. COMPARISON: Recent echocardiogram FINDINGS: Very small fixed perfusion abnormality at the cardiac apex towards the lateral wall. Findi ngs would be compatible with small area of prior infarction. In this region there is some minimal pe ri-infarct ischemia. On the gated portion of today's study there is very mild hypokinesis of the car diac apex. The ejection fraction is 59% rest 69% with stress. Impression: 1. Small fixed perfusion abnormality cardiac apex compatible with prior infarction with some minimal beni-infarct ischemia present. 2. Mild hypokinesis of the cardiac apex. 3. Normal ejection fraction.
[2016-06-09 12:01] VITALS: BP 118/81
--- NOTE | 2016-06-09 12:55 | STRESS ---
DATE OF SERVICE: 06/09/2016 INDICATION: Yoni is a 70-year-old male, who has been in the ICU because of atrial fibrillation with hypotension and tachycardia. He came in, he was severely hypotensive and we have monitored him. His blood pressure remains low, which limits how much beta-shayy we can give him. He is presently on flecainide as well as a low-dose of beta-shayy in order to help control his heart rate. He has had fatigue and shortness of breath chronically, and there was no change in this during the stress test. He tolerated the Lexiscan without a problem. The standard protocol was followed for the Lexiscan stress test. A 0.4 mg and 5 mL of Lexiscan was given IV push followed by a saline flush. Then the nuclear medicine portion was given. He tolerated this well. He was monitored by electrocardiogram throughout the entire time and blood pressures were taken per protocol. The resting electrocardiogram showed a heart rate of 120s to 130s in atrial fibrillation. There is no significant change in standing or lying down. During the exercise and rest, he remained in atrial fibrillation with a tachycardic response. The initial blood pressure was 148/82. At the end of the test, it was 131/82, which is the best blood pressure he has had for since he has been in the hospital. His heart rate initially was 150, it went up to 130 at the time of the injection of material. At the end of the test, the heart rate was 119. The accuracy of this test will be determined by the nuclear medicine portion. IMPRESSION: Atrial fibrillation with tachycardia response. Reports of nuclear medicine is pending. Reese Vasquez MD /[id number]
--- NOTE | 2016-06-09 13:07 | PCM.PN ---
- General Info Date of Service: 06/09/16 Functional Status: Reports: pain controlled - Review of Systems General: Reports: weakness HEENT: Reports: no symptoms Pulmonary: Reports: shortness of breath Cardiovascular: Reports: no symptoms Gastrointestinal: Reports: No symptoms Genitourinary: Reports: no symptoms Musculoskeletal: Reports: no symptoms Skin: Reports: no symptoms Neurological: Reports: no symptoms Psychiatric: Reports: no symptoms - Patient Data Vitals - most recent: Last Vital Signs Temp 98.1 F 06/09/16 12:00 Pulse 92 06/09/16 10:39 Resp 21 H 06/09/16 12:00 BP 118/81 06/09/16 12:00 Pulse Ox 96 06/09/16 12:00 Weight - most recent: 182 lb 5.156 oz I&O - last 24 hours: Intake & Output 06/08/16 06/09/16 06/09/16 22:59 06:59 14:59 Intake Total 2552 875 Output Total 650 800 Balance 1902 75 Dank Results last 24 hrs: Microbiology 06/05/16 15:45 Aerobic Blood Culture - Preliminary Blood - Arm, Right NO GROWTH AFTER 3 DAYS Anaerobic Blood Culture - Preliminary NO GROWTH AFTER 3 DAYS 06/05/16 15:35 Aerobic Blood Culture - Preliminary Blood - Arm, Right NO GROWTH AFTER 3 DAYS Anaerobic Blood Culture - Preliminary NO GROWTH AFTER 3 DAYS Med Orders - Current: Current Medications Acetaminophen (Tylenol) 650 mg PO Q4H PRN PRN Reason: Pain Last Admin: 06/05/16 18:23 Dose: 650 mg Acetaminophen/Hydrocodone Bitart ([place] 325-5 Mg) 1 tab PO Q6H PRN PRN Reason: Pain Last Admin: 06/06/16 21:09 Dose: 1 tab Apixaban (Eliquis) 5 mg PO DAILY [facility] Last Admin: 06/09/16 10:53 Dose: 5 mg Betamethasone Dipropionate (Diprosone 0.05% Oint) 0 gm TOP DAILY [facility] Last Admin: 06/09/16 10:58 Dose: 1 applic Buspirone HCl (Buspar) 10 mg PO BID [facility] Last Admin: 06/09/16 10:54 Dose: 10 mg Digoxin (Lanoxin) 250 mcg PO DAILY@1300 [facility] Last Admin: 06/08/16 13:10 Dose: 250 mcg Flecainide Acetate (Tambocor) 100 mg PO TID [facility] Last Admin: 06/09/16 10:54 Dose: 100 mg Fludrocortisone Acetate (Florinef) 0.1 mg PO WITHBREAKFAST [facility] Last Admin: 06/09/16 10:54 Dose: 0.1 mg Dextrose/Sodium Chloride (Dextrose 5%-Normal Saline) 1,000 mls @ 75 mls/hr IV ASDIRECTED [facility] Last Admin: 06/08/16 21:28 Dose: 75 mls/hr Levalbuterol HCl (Xopenex) 1.25 mg NEB QIDRT [facility] Last Admin: 06/09/16 10:37 Dose: 1.25 mg Lorazepam (Ativan) 0.5 mg PO TID [facility] Last Admin: 06/09/16 10:57 Dose: 0.5 mg Metoprolol Tartrate (Lopressor) 12.5 mg PO BID [facility] Last Admin: 06/09/16 11:55 Dose: Not Given Tiotropium [place] (Spiriva Handihaler) 18 mcg INH DAILY@0700 [facility] Last Admin: 06/09/16 07:23 Dose: 18 mcg Discontinued Medications Albuterol/Ipratropium (Duoneb 3.0-0.5 Mg/3 Ml) 3 ml INH QIDRT [facility] Last Admin: 06/07/16 14:46 Dose: 3 ml Digoxin (Lanoxin) 500 mcg IVPUSH ONETIME ONE Stop: 06/05/16 18:07 Last Admin: 06/05/16 18:21 Dose: 500 mcg Digoxin (Lanoxin) 500 mcg PO ONETIME ONE Stop: 06/05/16 22:13 Last Admin: 06/05/16 23:19 Dose: 500 mcg Diltiazem HCl (Diltiazem) 10 mg IVPUSH ONETIME ONE Stop: 06/06/16 17:55 Last Admin: 06/06/16 18:23 Dose: 10 mg Flecainide Acetate (Tambocor) 50 mg PO BID [facility] Last Admin: 06/06/16 09:52 Dose: 50 mg Flecainide Acetate (Tambocor) 100 mg PO BID [facility] Last Admin: 06/07/16 09:53 Dose: 100 mg Levofloxacin/Dextrose 500 mg/ (Premix) 100 mls @ 100 mls/hr IV Q24H [facility] Last Admin: 06/06/16 15:26 Dose: 100 mls/hr Ceftriaxone Sodium 1 gm/ (Sodium Chloride) 50 mls @ 100 mls/hr IV Q24H [facility] Last Admin: 06/06/16 16:45 Dose: 100 mls/hr Sodium Chloride (Normal Saline) 500 mls @ 250 mls/hr IV .BOLUS ONE Stop: 06/05/16 18:59 Last Admin: 06/05/16 17:13 Dose: 250 mls/hr Sodium Chloride (Normal Saline) 250 mls @ 500 mls/hr IV .BOLUS ONE Stop: 06/06/16 17:34 Last Admin: 06/06/16 17:31 Dose: 500 mls/hr Levalbuterol HCl (Xopenex) 1.25 mg NEB ONETIME ONE Stop: 06/09/16 01:01 Metoprolol Tartrate (Lopressor) 12.5 mg PO Q12H [facility] Last Admin: 06/07/16 05:49 Dose: 12.5 mg Metoprolol Tartrate (Lopressor) 25 mg PO BID [facility] Metoprolol Tartrate (Lopressor) 12.5 mg PO BID [facility] Metoprolol Tartrate (Lopressor) 12.5 mg PO BID [facility] Last Admin: 06/07/16 20:30 Dose: 12.5 mg Metoprolol Tartrate (Lopressor) 25 mg PO BID [facility] Regadenoson (Lexiscan) 0.4 mg IVPUSH ONETIME ONE Stop: 06/09/16 09:01 Last Admin: 06/09/16 09:22 Dose: 0.4 mg - Exam General: alert, oriented Neck: supple Lungs: Clear to auscultation, Normal respiratory effort Cardiovascular: irregular rhythm Abdomen: bowel sounds present, soft, no tenderness, no distension Back Exam: normal inspection, full range of motion Extremities: no edema Peripheral Pulses: 1+: radial (L), radial (R) Skin: warm, dry, intact Neurological: no new focal deficit Psy/Mental Status: alert, normal affect, normal mood - Problem List Review Problem List Initiated/Reviewed/Updated: Yes - My Orders Last 24 Hours: My Active Orders 06/08/16 21:00 LORazepam [Ativan] 0.5 mg PO TID busPIRone [Buspar] 10 mg PO BID 06/09/16 01:33 RT Aerosol Therapy [RC] ASDIRECTED 06/09/16 Breakfast Nothing Per Oral Diet [DIET] - Plan Plan:: Assessment/plan: #1. Atrial fibrillation with tachycardic response. He continues to have atrial fibrillation with tachycardic response. The stress test did show old myocardial infarction with beni-infarction ischemia very small amount. I spoke with him about this he wants to wait and we'll talk about it next week. We'll be discharging him today. #2. Asthma. Asthma has been a chronic condition we'll need to change his inhalers. #3. Pneumonia. not confirmed as it was not a pneumonic infiltrate probably just atelectasis.
--- NOTE | 2016-06-09 13:11 | PCM.DCSUM1 ---
Discharge Summary - Hospital Course Brief History: Yoni was admitted after coming to the office in a very weakened condition with hypotension and nearly passing out. He was brought into the hospital and admitted for evaluation of his cardiac dysrhythmia. - Discharge Data Discharge Date: 06/09/16 Discharge Disposition: Home, Self-Care 01 Condition: Fair - Patient Summary/Data Consults: Consultations 06/06/16 03:09 PT Evaluation and Treatment [CONS] Routine Please Evaluate and Treat. PT Reason for Consult: Strengthening This query below is only for informational purposes and is not editable. Hospital Course: While in the hospital I did change his medicine and started flecainide 300 mg a day to help control his heart rate. His blood pressure remained low so unable to start a lot of other medication. I did restart metoprolol 12.5 mg twice a day for his heart rate. Unable to go up higher because of hypotension. He did have a stress test which showed old myocardial infarction with a small amount periInfarction ischemia. At first his heart rate was up into the 140s 150s even higher for short period of time. He was complaining of shortness of breath secondary to COPD but his lungs were clear. I feel a large part of this is anxiety - Patient Instructions Diet: Heart Healthy Diet Activity: As Tolerated - Discharge Plan Home Medications: Home Meds Betamethasone Dipropionate [Diprosone 0.05% Oint] 1 applic TOP DAILY 10/05/13 [ History] Lisinopril 20 mg PO DAILY 10/05/13 [History] Tiotropium [Spiriva Handihaler] 1 puff INH DAILY 10/05/13 [History] Albuterol/Ipratropium [DuoNeb 3.0-0.5 MG/3 ML] 1 inhalation INH QID 06/05/16 [ History] Apixaban [Eliquis] 5 mg PO DAILY 06/05/16 [History] Diltiazem [Cardizem] 60 mg PO DAILY 06/05/16 [History] - Patient Data Vitals - Most Recent: Last Vital Signs Temp 98.1 F 06/09/16 12:00 Pulse 92 06/09/16 10:39 Resp 21 H 06/09/16 12:00 BP 118/81 06/09/16 12:00 Pulse Ox 96 06/09/16 12:00 Weight - Most Recent: 182 lb 5.156 oz I&O - Last 24 hours: Intake & Output 06/08/16 06/09/16 06/09/16 22:59 06:59 14:59 Intake Total 2552 875 Output Total 650 800 Balance 1902 75 ANNIE Results - Last 24 hrs: Microbiology 06/05/16 15:45 Aerobic Blood Culture - Preliminary Blood - Arm, Right NO GROWTH AFTER 3 DAYS Anaerobic Blood Culture - Preliminary NO GROWTH AFTER 3 DAYS 06/05/16 15:35 Aerobic Blood Culture - Preliminary Blood - Arm, Right NO GROWTH AFTER 3 DAYS Anaerobic Blood Culture - Preliminary NO GROWTH AFTER 3 DAYS Med Orders - Current: Current Medications Acetaminophen (Tylenol) 650 mg PO Q4H PRN PRN Reason: Pain Last Admin: 06/05/16 18:23 Dose: 650 mg Acetaminophen/Hydrocodone Bitart ([place] 325-5 Mg) 1 tab PO Q6H PRN PRN Reason: Pain Last Admin: 06/06/16 21:09 Dose: 1 tab Apixaban (Eliquis) 5 mg PO DAILY [facility] Last Admin: 06/09/16 10:53 Dose: 5 mg Betamethasone Dipropionate (Diprosone 0.05% Oint) 0 gm TOP DAILY [facility] Last Admin: 06/09/16 10:58 Dose: 1 applic Buspirone HCl (Buspar) 10 mg PO BID [facility] Last Admin: 06/09/16 10:54 Dose: 10 mg Digoxin (Lanoxin) 250 mcg PO DAILY@1300 [facility] Last Admin: 06/08/16 13:10 Dose: 250 mcg Flecainide Acetate (Tambocor) 100 mg PO TID [facility] Last Admin: 06/09/16 10:54 Dose: 100 mg Fludrocortisone Acetate (Florinef) 0.1 mg PO WITHBREAKFAST [facility] Last Admin: 06/09/16 10:54 Dose: 0.1 mg Dextrose/Sodium Chloride (Dextrose 5%-Normal Saline) 1,000 mls @ 75 mls/hr IV ASDIRECTED [facility] Last Admin: 06/08/16 21:28 Dose: 75 mls/hr Levalbuterol HCl (Xopenex) 1.25 mg NEB QIDRT [facility] Last Admin: 06/09/16 10:37 Dose: 1.25 mg Lorazepam (Ativan) 0.5 mg PO TID [facility] Last Admin: 06/09/16 10:57 Dose: 0.5 mg Metoprolol Tartrate (Lopressor) 12.5 mg PO BID [facility] Last Admin: 06/09/16 11:55 Dose: Not Given Tiotropium [place] (Spiriva Handihaler) 18 mcg INH DAILY@0700 [facility] Last Admin: 06/09/16 07:23 Dose: 18 mcg Discontinued Medications Albuterol/Ipratropium (Duoneb 3.0-0.5 Mg/3 Ml) 3 ml INH QIDRT [facility] Last Admin: 06/07/16 14:46 Dose: 3 ml Digoxin (Lanoxin) 500 mcg IVPUSH ONETIME ONE Stop: 06/05/16 18:07 Last Admin: 06/05/16 18:21 Dose: 500 mcg Digoxin (Lanoxin) 500 mcg PO ONETIME ONE Stop: 06/05/16 22:13 Last Admin: 06/05/16 23:19 Dose: 500 mcg Diltiazem HCl (Diltiazem) 10 mg IVPUSH ONETIME ONE Stop: 06/06/16 17:55 Last Admin: 06/06/16 18:23 Dose: 10 mg Flecainide Acetate (Tambocor) 50 mg PO BID [facility] Last Admin: 06/06/16 09:52 Dose: 50 mg Flecainide Acetate (Tambocor) 100 mg PO BID [facility] Last Admin: 06/07/16 09:53 Dose: 100 mg Levofloxacin/Dextrose 500 mg/ (Premix) 100 mls @ 100 mls/hr IV Q24H [facility] Last Admin: 06/06/16 15:26 Dose: 100 mls/hr Ceftriaxone Sodium 1 gm/ (Sodium Chloride) 50 mls @ 100 mls/hr IV Q24H [facility] Last Admin: 06/06/16 16:45 Dose: 100 mls/hr Sodium Chloride (Normal Saline) 500 mls @ 250 mls/hr IV .BOLUS ONE Stop: 06/05/16 18:59 Last Admin: 06/05/16 17:13 Dose: 250 mls/hr Sodium Chloride (Normal Saline) 250 mls @ 500 mls/hr IV .BOLUS ONE Stop: 06/06/16 17:34 Last Admin: 06/06/16 17:31 Dose: 500 mls/hr Levalbuterol HCl (Xopenex) 1.25 mg NEB ONETIME ONE Stop: 06/09/16 01:01 Metoprolol Tartrate (Lopressor) 12.5 mg PO Q12H [facility] Last Admin: 06/07/16 05:49 Dose: 12.5 mg Metoprolol Tartrate (Lopressor) 25 mg PO BID [facility] Metoprolol Tartrate (Lopressor) 12.5 mg PO BID [facility] Metoprolol Tartrate (Lopressor) 12.5 mg PO BID [facility] Last Admin: 06/07/16 20:30 Dose: 12.5 mg Metoprolol Tartrate (Lopressor) 25 mg PO BID [facility] Regadenoson (Lexiscan) 0.4 mg IVPUSH ONETIME ONE Stop: 06/09/16 09:01 Last Admin: 06/09/16 09:22 Dose: 0.4 mg *Q Meaningful Use (DIS) - VTE *Q VTE Criteria *Q: - Stroke *Q Stroke Criteria *Q: - AMI *Q AMI Criteria *Q:
[2016-06-09] MEDS: Digoxin 125 MCG Tab PO SCH (13:34)
== END 2016-06-09 13:45 | disposition home or self-care (01) | DRG 308 ==
LOC: JP.ICU 11:26
PROVIDERS: ADMIT Internal Medicine; ATTEND Internal Medicine
DX: I48.91 Unspecified atrial fibrillation (principal); J18.9 Pneumonia, unspecified organism; R00.0 Tachycardia, unspecified; I10 Essential (primary) hypertension; J45.909 Unspecified asthma, uncomplicated; I25.2 Old myocardial infarction; Z87.891 Personal history of nicotine dependence; M19.90 Unspecified osteoarthritis, unspecified site; H54.7 Unspecified visual loss; L40.9 Psoriasis, unspecified; Z79.01 Long term (current) use of anticoagulants; Z91.030 Bee allergy status
CPT/HCPCS: 36415; 71010; 71010-26; 71020; 71020-26; 78452; 78452-26; 80048; 80053; 80162; 81001; 82550; 82553; 84484; 85025; 87040; 87070; 87205; 93005; 93306; 94640-76; 94664; 97110-GP; 97162-GP; A9270-GY; A9500; J0696; J1160; J1956; J2785; J3490; J7040; J7050; J7620

== ENCOUNTER 2016-06-18 13:52 | Inpatient (IN) | payer MEDICARE, BC ==
[2016-06-18] MEDS ORDERED: Albuterol 0.083% 2.5 MG/3 ML Neb Soln NEB PRN (14:12)
[2016-06-18] MEDS: Albuterol/Ipratropium 3.0-0.5 MG/3 ML Neb Soln INH SCH ×2 (15:43→21:27)
[2016-06-18] MEDS: Dextrose 5%-0.9% NaCl 1,000 ML IV SCH (15:44)
[2016-06-18] MEDS ORDERED: Fludrocortisone 0.1 MG Tab PO ONE (16:00)
[2016-06-18] MEDS ORDERED: Levalbuterol HCl 1.25 MG/3 ML Neb NEB SCH (21:00)
[2016-06-18] MEDS: busPIRone 10 MG Tab PO SCH (21:26)
[2016-06-18] MEDS: Metoprolol Tartrate 25 MG Tab PO SCH (21:27)
[2016-06-18] MEDS: Flecainide 50 MG Tab PO SCH (21:28)
[2016-06-19] MEDS: Dextrose 5%-0.9% NaCl 1,000 ML IV SCH (05:19)
[2016-06-19] MEDS ORDERED: Tiotropium Inhaler 18 MCG Inhalation Powder Cap Kit of 5 INH SCH (07:00)
[2016-06-19] MEDS: Albuterol/Ipratropium 3.0-0.5 MG/3 ML Neb Soln INH SCH ×3 (07:29→14:51)
[2016-06-19] MEDS ORDERED: Fludrocortisone 0.1 MG Tab PO SCH (08:00)
[2016-06-19] MEDS ORDERED: Acetaminophen 500 MG Tab PO PRN (08:18)
[2016-06-19] MEDS: Flecainide 50 MG Tab PO SCH (08:28)
[2016-06-19] MEDS: busPIRone 10 MG Tab PO SCH (08:29)
[2016-06-19] MEDS: Metoprolol Tartrate 25 MG Tab PO SCH (08:41)
[2016-06-19] MEDS ORDERED: Non-Formulary Medication 1 Each (Apixaban 5 MG) PO SCH (09:00)
[2016-06-19] MEDS ORDERED: Apixaban 5 MG Tab PO SCH (09:00)
--- NOTE | 2016-06-19 09:44 | CR ---
Mild cardiomegaly. Emphysematous change. No focal consolidation.
[2016-06-19 11:07] VITALS: BP 113/71
[2016-06-19] MEDS ORDERED: Digoxin 125 MCG Tab PO SCH (13:00)
--- NOTE | 2016-06-19 13:21 | PCM.HP ---
H&P History of Present Illness - General Date of Service: 06/18/16 Admit Problem/Dx: Admission Diagnosis/Problem Admission Diagnosis/Problem Weakness Source of Information: Patient History Limitations: Reports: No limitations - History of Present Illness Initial Comments - Free Text/Narative: Begun having weakness yesterday and today weakness and felt cold unable to get warm. Had shortness of breath and dizziness. This progressed until he came to the hospital after calling me. - Related Data Allergies/Adverse Reactions: Allergies Allergy/AdvReac Type Severity Reaction Status Date / Time bee sting Allergy Swelling Uncoded 10/05/13 14:03 Home Medications: Home Meds Albuterol/Ipratropium [DuoNeb 3.0-0.5 MG/3 ML] 1 inhalation INH QID 06/05/16 [ History] Apixaban [Eliquis] 5 mg PO DAILY tablet 06/09/16 [Rx] Digoxin [Lanoxin] 250 mcg PO DAILY@1300 tablet 06/09/16 [Rx] Flecainide [Tambocor] 100 mg PO TID tablet 06/09/16 [Rx] Fludrocortisone [Florinef] 0.1 mg PO WITHBREAKFAST tablet 06/09/16 [Rx] Levalbuterol HCl [Xopenex] 1.25 mg NEB QIDRT neb 06/09/16 [Rx] Metoprolol Tartrate [Lopressor] 12.5 mg PO BID tablet 06/09/16 [Rx] Tiotropium [Spiriva HandiHaler] 18 mcg INH DAILY@0700 cap 06/09/16 [Rx] busPIRone [Buspar] 10 mg PO BID tablet 06/09/16 [Rx] Amoxicillin [Amoxicillin] 1 caplet PO TID 06/18/16 [History] Past Medical History HEENT History: Reports: Impaired vision Cardiovascular History: Reports: Afib, Hypertension Respiratory History: Reports: COPD Musculoskeletal History: Reports: Fracture, Osteoarthritis, Other (see below) Other Musculoskeletal History: joint pain Dermatologic History: Reports: Psoriasis - Infectious Disease History Infectious Disease History: Reports: Chicken pox, Measles, Mumps, Rubella Social & Family History - Family History Family Medical History: Noncontributory - Tobacco Use Smoking Status *Q: Former Smoker Years of Tobacco use: 20 Packs/Tins Daily: 0 Used Tobacco, but Quit: Yes Month Tobacco Last Used: 01 Second Hand Smoke Exposure: No - Caffeine Use Caffeine Use: Reports: None Caffeine Use Comment: 2. cups - Alcohol Use Days Per Week of Alcohol Use: 0 Number of Drinks Per Day: 3 Total Drinks Per Week: 0 - Recreational Drug Use Recreational Drug Use: No H&P Review of Systems - Review of Systems: Review Of Systems: See Below General: Reports: weakness, fatigue HEENT: Reports: no symptoms Pulmonary: Reports: shortness of breath, wheezing, cough Cardiovascular: Reports: dyspnea on exertion Gastrointestinal: Reports: Diarrhea Genitourinary: Reports: no symptoms Musculoskeletal: Reports: no symptoms Skin: Reports: no symptoms Psychiatric: Reports: no symptoms Neurological: Reports: dizziness, gait disturbance Hematologic/Lymphatic: Reports: no symptoms Exam - Exam Exam: See Below - Vital Signs Vital Signs: Last Vital Signs Temp 96.4 F 06/19/16 11:06 Pulse 62 06/19/16 11:06 Resp 12 06/19/16 11:06 BP 113/71 06/19/16 11:06 Pulse Ox 94 L 06/19/16 11:06 Weight: 182 lb 5.156 oz - Exam General: alert, oriented, moderate distress HEENT: PERRLA, Hearing intact, Mucosa moist & pink, Nares patent, Normal nasal septum, Posterior pharynx clear, Conjunctiva clear, EOMI, EACs clear, TMs clear Neck: supple, trachea midline, 2 Lungs: Wheezing Cardiovascular: regular rate, regular rhythm Abdomen: normal bowel sounds, soft Back Exam: normal inspection, full range of motion, NT Extremities: 3, normal inspection, 10 Peripheral Pulses: 1+: radial (L), radial (R) Skin: warm, dry, intact Neuro Extensive - Motor, Sensory, Reflexes: CN II-XII intact DTR: 1+: patella (L), patella (R) - Patient Data Lab Results last 24 hrs: Laboratory Results - last 24 hr 06/18/16 06/18/16 06/18/16 Range/Units 14:29 14:29 14:34 WBC 10.2 (4.5-11.0) K/uL RBC 4.44 (4.30-5.90) M/uL Hgb 13.1 (12.0-15.0) g/dL Hct 38.3 L (40.0-54.0) % MCV 86 (80-98) fL MCH 30 (27-31) pg MCHC 34 (32-36) % Plt Count 280 (150-400) K/uL Neut % (Auto) 75 H (36-66) % Lymph % (Auto) 13 L (24-44) % [place] % (Auto) 11 H (2-6) % Eos % (Auto) 1 L (2-4) % Baso % (Auto) 1 (0-1) % Puncture Site Lt radial ABG pH 7.442 (7.350-7.450) ABG pCO2 37.1 (35.0-42.0) mmHg ABG pO2 75.9 (75.0-100.0) mmHg ABG HCO3 24.9 (22.0-26.0) mmol/L ABG Total CO2 22.0 L (23.0-27.0) mmol/L ABG O2 Saturation 95.2 (95.0-98.0) % ABG O2 Content 17.4 (15.0-23.0) %vol ABG Base Excess 1.4 mm/L ABG Hemoglobin 13.2 L (13.5-18.0) g/dL ABG Oxyhemoglobin 93.8 % ABG Carboxyhemoglobin 0.8 (0.0-1.6) % ABG Methemoglobin 0.7 % Luis A Test Pass O2 Delivery Device Nasal cannula Oxygen Flow Rate 1 L Sodium 128 L (140-148) mmol/L Potassium 3.7 (3.6-5.2) mmol/L Chloride 94 L (100-108) mmol/L Carbon Dioxide 27 (21-32) mmol/L Anion Gap 10.7 (5.0-14.0) mmol/L BUN 5 L (7-18) mg/dL Creatinine 0.9 (0.8-1.3) mg/dL Est Cr Clr Drug Dosing 79.83 mL/min Estimated GFR (MDRD) > 60 (>60) Glucose 108 H (74-106) mg/dL Calcium 8.2 L (8.5-10.1) mg/dL Total Bilirubin 0.7 (0.2-1.0) mg/dL AST 24 (15-37) U/L ALT 36 (12-78) U/L Alkaline Phosphatase 55 (46-116) U/L Total Protein 6.9 (6.4-8.2) g/dL Albumin 2.9 L (3.4-5.0) g/dL Globulin 4.0 H (2.3-3.5) g/dL Albumin/Globulin Ratio 0.7 L (1.2-2.2) Urine Color Urine Appearance Urine pH (4.5-8.0) Ur Specific [place] (1.008-1.030) Urine Protein (NEGATIVE) mg/dL Urine Glucose (UA) (NEGATIVE) mg/dL Urine Ketones (NEGATIVE) mg/dL Urine Occult Blood (NEGATIVE) Urine Nitrite (NEGAITVE) Urine Bilirubin (NEGATIVE) Urine Urobilinogen (NORMAL) mg/dL Ur Leukocyte Esterase (NEGATIVE) Urine RBC (0-5) Urine WBC (0-5) Ur Epithelial Cells Amorphous Sediment Urine Bacteria Urine Mucus Digoxin 0.87 L (0.90-2.00) ng/mL 06/18/16 06/19/16 06/19/16 Range/Units 19:37 10:40 10:40 WBC 7.2 (4.5-11.0) K/uL RBC 4.15 L (4.30-5.90) M/uL Hgb 12.2 (12.0-15.0) g/dL Hct 36.2 L (40.0-54.0) % MCV 87 (80-98) fL MCH 29 (27-31) pg MCHC 34 (32-36) % Plt Count 256 (150-400) K/uL Neut % (Auto) (36-66) % Lymph % (Auto) (24-44) % [place] % (Auto) (2-6) % Eos % (Auto) (2-4) % Baso % (Auto) (0-1) % Puncture Site ABG pH (7.350-7.450) ABG pCO2 (35.0-42.0) mmHg ABG pO2 (75.0-100.0) mmHg ABG HCO3 (22.0-26.0) mmol/L ABG Total CO2 (23.0-27.0) mmol/L ABG O2 Saturation (95.0-98.0) % ABG O2 Content (15.0-23.0) %vol ABG Base Excess mm/L ABG Hemoglobin (13.5-18.0) g/dL ABG Oxyhemoglobin % ABG Carboxyhemoglobin (0.0-1.6) % ABG Methemoglobin % Luis A Test O2 Delivery Device Oxygen Flow Rate L Sodium 133 L (140-148) mmol/L Potassium 3.4 L (3.6-5.2) mmol/L Chloride 99 L (100-108) mmol/L Carbon Dioxide 27 (21-32) mmol/L Anion Gap 10.4 (5.0-14.0) mmol/L BUN 2 L D (7-18) mg/dL Creatinine 0.8 (0.8-1.3) mg/dL Est Cr Clr Drug Dosing 89.81 mL/min Estimated GFR (MDRD) > 60 (>60) Glucose 135 H (74-106) mg/dL Calcium 8.0 L (8.5-10.1) mg/dL Total Bilirubin 0.6 (0.2-1.0) mg/dL AST 24 (15-37) U/L ALT 33 (12-78) U/L Alkaline Phosphatase 44 L (46-116) U/L Total Protein 6.3 L (6.4-8.2) g/dL Albumin 2.5 L (3.4-5.0) g/dL Globulin 3.8 H (2.3-3.5) g/dL Albumin/Globulin Ratio 0.7 L (1.2-2.2) Urine Color Yellow Urine Appearance Clear Urine pH 6.0 (4.5-8.0) Ur Specific [place] 1.015 (1.008-1.030) Urine Protein Negative (NEGATIVE) mg/dL Urine Glucose (UA) Normal (NEGATIVE) mg/dL Urine Ketones Negative (NEGATIVE) mg/dL Urine Occult Blood Negative (NEGATIVE) Urine Nitrite Negative (NEGAITVE) Urine Bilirubin Negative (NEGATIVE) Urine Urobilinogen 1 (NORMAL) mg/dL Ur Leukocyte Esterase Negative (NEGATIVE) Urine RBC 0-5 (0-5) Urine WBC 0-5 (0-5) Ur Epithelial Cells Few Amorphous Sediment Not seen Urine Bacteria Not seen Urine Mucus Rare Digoxin (0.90-2.00) ng/mL Result Diagrams: 06/19/16 10:40 06/19/16 10:40 Dank Results last 24 hrs: Microbiology 06/18/16 14:39 Influenza Type A Antigen Screen - Final Nasopharyngeal Swab - Nare, Left NEGATIVE INFLUENZA A VIRUS AG Influenza Type B Antigen Screen - Final NEGATIVE INFLUENZA B VIRUS AG *Q Meaningful Use (ADM) - VTE *Q VTE Criteria *Q: - Stroke *Q Stroke Criteria *Q: - AMI *Q AMI Criteria *Q: Problem List Initiated/Reviewed/Updated: Yes Orders Last 24hrs: Active Orders 24 hr Category Date Time Status Patient Status [ADT] Routine ADT 06/18/16 14:00 Active Cardiac Monitoring [RC] .As Directed Care 06/18/16 14:12 Active RT Aerosol Therapy [RC] ASDIRECTED Care 06/18/16 14:14 Active PT Evaluation and Treatment [CONS] Routine Cons 06/19/16 10:30 Active Regular Diet [DIET] Diet 06/18/16 Dinner Active Acetaminophen [Tylenol Extra Strength] Med 06/19/16 08:18 Active 500 - 1,000 mg PO Q6H PRN Albuterol [Proventil Neb Soln] Med 06/18/16 14:12 Active 2.5 mg NEB Q4H PRN Albuterol/Ipratropium [DuoNeb 3.0-0.5 MG/3 ML] Med 06/18/16 16:00 Active 3 ml INH QIDRT Apixaban [Eliquis] Med 06/19/16 09:00 Active 5 mg PO DAILY Dextrose 5%-0.9% NaCl [Dextrose 5%-Normal Saline] 1,000 Med 06/18/16 15:30 Active ml IV ASDIRECTED Digoxin [Lanoxin] Med 06/19/16 13:00 Active 125 mcg PO DAILY@1300 Flecainide [Tambocor] Med 06/18/16 21:00 Active 100 mg PO BID Fludrocortisone [Florinef] Med 06/19/16 08:00 Active 0.1 mg PO WITHBREAKFAST Levalbuterol HCl [Xopenex] Med 06/18/16 21:00 Pending 1.25 mg NEB QIDRT Metoprolol Tartrate [Lopressor] Med 06/18/16 21:00 Active 12.5 mg PO BID Tiotropium [Spiriva HandiHaler] Med 06/19/16 07:00 Active 18 mcg INH DAILY@0700 busPIRone [Buspar] Med 06/18/16 21:00 Active 10 mg PO BID EKG 12 Lead [EK] Routine Ther 06/18/16 14:12 Ordered Medication Orders Acetaminophen (Tylenol Extra Strength) 500 - 1,000 mg PO Q6H PRN PRN Reason: Pain Last Admin: 06/19/16 08:50 Dose: 500 mg Albuterol (Proventil Neb Soln) 2.5 mg NEB Q4H PRN PRN Reason: Shortness of Breath Albuterol/Ipratropium (Duoneb 3.0-0.5 Mg/3 Ml) 3 ml INH QIDRT [facility] Last Admin: 06/19/16 10:52 Dose: 3 ml Admin: 06/19/16 07:29 Dose: 3 ml Admin: 06/18/16 21:27 Dose: 3 ml Admin: 06/18/16 15:43 Dose: 3 ml Apixaban (Eliquis) 5 mg PO DAILY [facility] Last Admin: 06/19/16 08:29 Dose: 5 mg Buspirone HCl (Buspar) 10 mg PO BID [facility] Last Admin: 06/19/16 08:29 Dose: 10 mg Admin: 06/18/16 21:26 Dose: 10 mg Digoxin (Lanoxin) 125 mcg PO DAILY@1300 [facility] Flecainide Acetate (Tambocor) 100 mg PO BID [facility] Last Admin: 06/19/16 08:28 Dose: 100 mg Admin: 06/18/16 21:28 Dose: 100 mg Fludrocortisone Acetate (Florinef) 0.1 mg PO WITHBREAKFAST [facility] Last Admin: 06/19/16 08:30 Dose: 0.1 mg Dextrose/Sodium Chloride (Dextrose 5%-Normal Saline) 1,000 mls @ 75 mls/hr IV ASDIRECTED [facility] Last Admin: 06/19/16 05:19 Dose: 75 mls/hr Infusion: 06/19/16 05:04 Dose: 75 mls/hr Admin: 06/18/16 15:44 Dose: 75 mls/hr Levalbuterol HCl (Xopenex) 1.25 mg NEB QIDRT [facility] Metoprolol Tartrate (Lopressor) 12.5 mg PO BID [facility] Last Admin: 06/19/16 08:41 Dose: 12.5 mg Admin: 06/18/16 21:27 Dose: 12.5 mg Tiotropium [place] (Spiriva Handihaler) 18 mcg INH DAILY@0700 [facility] Last Admin: 06/19/16 07:30 Dose: 18 mcg Assessment/Plan Comment:: Assessment/Plan: #1. Respiratory distress syndrome. Have started him on oxygen and immediately begin to feel better. Last time he was in he did have Atrial Fib. Was regular today. His blood pressure remains low but stable. Will continue with Flecainide at 200mg/day. #2. Hypotension: Will cojtinue with fludrocortisone #3. COPD. Will continue with the inhalers.
--- NOTE | 2016-06-19 18:11 | PCM.PN ---
- General Info Date of Service: 06/19/16 Admission Dx/Problem (Free Text): Yoni states that he has less shortness of breath and doing much better than when he came in. He does have no wheezing at the present time. He feels that the problem was caused by amoxicillin reaction. Functional Status: Reports: pain controlled - Review of Systems General: Reports: Weakness HEENT: Reports: no symptoms Pulmonary: Reports: shortness of breath, cough, wheezing Cardiovascular: Reports: No Symptoms Gastrointestinal: Reports: Nausea Genitourinary: Reports: no symptoms Musculoskeletal: Reports: no symptoms Skin: Reports: no symptoms Neurological: Reports: No Symptoms Psychiatric: Reports: no symptoms - Patient Data Vitals - most recent: Last Vital Signs Temp 96.4 F 06/19/16 11:06 Pulse 65 06/19/16 14:52 Resp 12 06/19/16 11:06 BP 113/71 06/19/16 11:06 Pulse Ox 96 06/19/16 14:52 Weight - most recent: 182 lb 5.156 oz I&O - last 24 hours: Intake & Output 06/19/16 06/19/16 06/19/16 06:59 14:59 22:59 Intake Total 1006 600 Output Total 400 376 Balance 606 224 Lab Results last 24 hrs: Laboratory Results - last 24 hr 06/18/16 06/19/16 06/19/16 Range/Units 19:37 10:40 10:40 WBC 7.2 (4.5-11.0) K/uL RBC 4.15 L (4.30-5.90) M/uL Hgb 12.2 (12.0-15.0) g/dL Hct 36.2 L (40.0-54.0) % MCV 87 (80-98) fL MCH 29 (27-31) pg MCHC 34 (32-36) % Plt Count 256 (150-400) K/uL Sodium 133 L (140-148) mmol/L Potassium 3.4 L (3.6-5.2) mmol/L Chloride 99 L (100-108) mmol/L Carbon Dioxide 27 (21-32) mmol/L Anion Gap 10.4 (5.0-14.0) mmol/L BUN 2 L D (7-18) mg/dL Creatinine 0.8 (0.8-1.3) mg/dL Est Cr Clr Drug Dosing 89.81 mL/min Estimated GFR (MDRD) > 60 (>60) Glucose 135 H (74-106) mg/dL Calcium 8.0 L (8.5-10.1) mg/dL Total Bilirubin 0.6 (0.2-1.0) mg/dL AST 24 (15-37) U/L ALT 33 (12-78) U/L Alkaline Phosphatase 44 L (46-116) U/L Total Protein 6.3 L (6.4-8.2) g/dL Albumin 2.5 L (3.4-5.0) g/dL Globulin 3.8 H (2.3-3.5) g/dL Albumin/Globulin Ratio 0.7 L (1.2-2.2) Urine Color Yellow Urine Appearance Clear Urine pH 6.0 (4.5-8.0) Ur Specific [place] 1.015 (1.008-1.030) Urine Protein Negative (NEGATIVE) mg/dL Urine Glucose (UA) Normal (NEGATIVE) mg/dL Urine Ketones Negative (NEGATIVE) mg/dL Urine Occult Blood Negative (NEGATIVE) Urine Nitrite Negative (NEGAITVE) Urine Bilirubin Negative (NEGATIVE) Urine Urobilinogen 1 (NORMAL) mg/dL Ur Leukocyte Esterase Negative (NEGATIVE) Urine RBC 0-5 (0-5) Urine WBC 0-5 (0-5) Ur Epithelial Cells Few Amorphous Sediment Not seen Urine Bacteria Not seen Urine Mucus Rare Dank Results last 24 hrs: Microbiology 06/18/16 14:39 Influenza Type A Antigen Screen - Final Nasopharyngeal Swab - Nare, Left NEGATIVE INFLUENZA A VIRUS AG Influenza Type B Antigen Screen - Final NEGATIVE INFLUENZA B VIRUS AG Med Orders - Current: Current Medications Acetaminophen (Tylenol Extra Strength) 500 - 1,000 mg PO Q6H PRN PRN Reason: Pain Last Admin: 06/19/16 08:50 Dose: 500 mg Albuterol (Proventil Neb Soln) 2.5 mg NEB Q4H PRN PRN Reason: Shortness of Breath Albuterol/Ipratropium (Duoneb 3.0-0.5 Mg/3 Ml) 3 ml INH QIDRT [facility] Last Admin: 06/19/16 14:51 Dose: 3 ml Apixaban (Eliquis) 5 mg PO DAILY [facility] Last Admin: 06/19/16 08:29 Dose: 5 mg Buspirone HCl (Buspar) 10 mg PO BID [facility] Last Admin: 06/19/16 08:29 Dose: 10 mg Digoxin (Lanoxin) 125 mcg PO DAILY@1300 [facility] Last Admin: 06/19/16 13:38 Dose: 125 mcg Flecainide Acetate (Tambocor) 100 mg PO BID [facility] Last Admin: 06/19/16 08:28 Dose: 100 mg Fludrocortisone Acetate (Florinef) 0.1 mg PO WITHBREAKFAST [facility] Last Admin: 06/19/16 08:30 Dose: 0.1 mg Dextrose/Sodium Chloride (Dextrose 5%-Normal Saline) 1,000 mls @ 75 mls/hr IV ASDIRECTED [facility] Last Admin: 06/19/16 05:19 Dose: 75 mls/hr Levalbuterol HCl (Xopenex) 1.25 mg NEB QIDRT [facility] Metoprolol Tartrate (Lopressor) 12.5 mg PO BID [facility] Last Admin: 06/19/16 08:41 Dose: 12.5 mg Tiotropium [place] (Spiriva Handihaler) 18 mcg INH DAILY@0700 [facility] Last Admin: 06/19/16 07:30 Dose: 18 mcg Discontinued Medications Fludrocortisone Acetate (Florinef) 0.1 mg PO ONETIME ONE Stop: 06/18/16 16:01 Last Admin: 06/18/16 15:50 Dose: 0.1 mg - Exam General: alert, oriented Neck: supple Lungs: Clear to auscultation, Normal respiratory effort Cardiovascular: Regular Rate, Regular Rhythm Extremities: no edema Peripheral Pulses: 1+: radial (L), radial (R) Skin: warm, dry, intact Neurological: no new focal deficit Psy/Mental Status: depressed - Problem List Review Problem List Initiated/Reviewed/Updated: Yes - My Orders Last 24 Hours: My Active Orders 06/18/16 21:00 Flecainide [Tambocor] 100 mg PO BID Levalbuterol HCl [Xopenex] 1.25 mg NEB QIDRT Metoprolol Tartrate [Lopressor] 12.5 mg PO BID busPIRone [Buspar] 10 mg PO BID 06/19/16 07:00 Tiotropium [Spiriva HandiHaler] 18 mcg INH DAILY@0700 06/19/16 08:00 Fludrocortisone [Florinef] 0.1 mg PO WITHBREAKFAST 06/19/16 08:18 Acetaminophen [Tylenol Extra Strength] 500 - 1,000 mg PO Q6H PRN 06/19/16 09:00 Apixaban [Eliquis] 5 mg PO DAILY 06/19/16 10:30 PT Evaluation and Treatment [CONS] Routine 06/19/16 13:00 Digoxin [Lanoxin] 125 mcg PO DAILY@1300 06/19/16 18:10 Ready for Discharge [RC] PER UNIT ROUTINE - Plan Plan:: Assessment/Plan: #1. Respiratory distress syndrome. I did do respiratory evaluations without oxygen he did not pass as his oxygen level stayed above 90 the entire time with rest and exercise. His blood pressure is low but acceptable at present time. We'll discharge home. #2. Hypotension: Will cojtinue with fludrocortisone #3. COPD. Will continue with the inhalers.
--- NOTE | 2016-06-19 18:11 | PCM.DCSUM1 ---
Discharge Summary - Hospital Course HPI Initial Comments: He began having weakness 2 days ago and was unable to get warm having chills having significant shortness of breath and dizziness. The systems mentioned became worse and finally came to the emergency room and I received a call said that he would be a direct admit as he was not doing well so he was admitted. - Discharge Data Discharge Date: 06/19/16 Discharge Disposition: Home, Self-Care 01 Condition: Good - Patient Summary/Data Complications: Had no complication the hospital he did not start amoxicillin and he made significant improvement in her Consults: Consultations 06/19/16 10:30 PT Evaluation and Treatment [CONS] Routine Please Evaluate and Treat. PT Reason for Consult: weakness-feels like he is going to pass out This query below is only for informational purposes and is not editable. Admission Diagnosis/Problem: Weakness Hospital Course: While in the hospital he had no significant problem with his breathing improved and anxiety improved as well. He did have a test for oxygen need in this was not confirmed. With exercises pulse oximetry stayed above 90.. Laboratory analysis were done as listed above. His arterial blood gas was unremarkable. The white count was normal as well as hemoglobin. Initially the sodium was 1/ 28 is getting up to 133 while in the hospital. IV fluids were given. He is being discharged home in stable condition. Admission diagnosis and discharge diagnosis: #1. COPD with respiratory distress syndrome. #2. Hypotension on fludrocortisone. #3. Atrial fibrillation rate stable. - Patient Instructions Diet: Heart Healthy Diet Activity: As Tolerated - Discharge Plan Home Medications: Home Meds Apixaban [Eliquis] 5 mg PO DAILY tablet 06/09/16 [Rx] Digoxin [Lanoxin] 250 mcg PO DAILY@1300 tablet 06/09/16 [Rx] Fludrocortisone [Florinef] 0.1 mg PO WITHBREAKFAST tablet 06/09/16 [Rx] Levalbuterol HCl [Xopenex] 1.25 mg NEB QIDRT neb 06/09/16 [Rx] Metoprolol Tartrate [Lopressor] 12.5 mg PO BID tablet 06/09/16 [Rx] Tiotropium [Spiriva HandiHaler] 18 mcg INH DAILY@0700 cap 06/09/16 [Rx] busPIRone [Buspar] 10 mg PO BID tablet 06/09/16 [Rx] Flecainide [Tambocor] 100 mg PO BIDPC #0 tablet 06/19/16 [Rx] - Patient Data Vitals - Most Recent: Last Vital Signs Temp 96.4 F 06/19/16 11:06 Pulse 65 06/19/16 14:52 Resp 12 06/19/16 11:06 BP 113/71 06/19/16 11:06 Pulse Ox 96 06/19/16 14:52 Weight - Most Recent: 182 lb 5.156 oz I&O - Last 24 hours: Intake & Output 06/19/16 06/19/16 06/19/16 06:59 14:59 22:59 Intake Total 1006 600 Output Total 400 376 Balance 606 224 Lab Results - Last 24 hrs: Laboratory Results - last 24 hr 06/18/16 06/19/16 06/19/16 Range/Units 19:37 10:40 10:40 WBC 7.2 (4.5-11.0) K/uL RBC 4.15 L (4.30-5.90) M/uL Hgb 12.2 (12.0-15.0) g/dL Hct 36.2 L (40.0-54.0) % MCV 87 (80-98) fL MCH 29 (27-31) pg MCHC 34 (32-36) % Plt Count 256 (150-400) K/uL Sodium 133 L (140-148) mmol/L Potassium 3.4 L (3.6-5.2) mmol/L Chloride 99 L (100-108) mmol/L Carbon Dioxide 27 (21-32) mmol/L Anion Gap 10.4 (5.0-14.0) mmol/L BUN 2 L D (7-18) mg/dL Creatinine 0.8 (0.8-1.3) mg/dL Est Cr Clr Drug Dosing 89.81 mL/min Estimated GFR (MDRD) > 60 (>60) Glucose 135 H (74-106) mg/dL Calcium 8.0 L (8.5-10.1) mg/dL Total Bilirubin 0.6 (0.2-1.0) mg/dL AST 24 (15-37) U/L ALT 33 (12-78) U/L Alkaline Phosphatase 44 L (46-116) U/L Total Protein 6.3 L (6.4-8.2) g/dL Albumin 2.5 L (3.4-5.0) g/dL Globulin 3.8 H (2.3-3.5) g/dL Albumin/Globulin Ratio 0.7 L (1.2-2.2) Urine Color Yellow Urine Appearance Clear Urine pH 6.0 (4.5-8.0) Ur Specific [place] 1.015 (1.008-1.030) Urine Protein Negative (NEGATIVE) mg/dL Urine Glucose (UA) Normal (NEGATIVE) mg/dL Urine Ketones Negative (NEGATIVE) mg/dL Urine Occult Blood Negative (NEGATIVE) Urine Nitrite Negative (NEGAITVE) Urine Bilirubin Negative (NEGATIVE) Urine Urobilinogen 1 (NORMAL) mg/dL Ur Leukocyte Esterase Negative (NEGATIVE) Urine RBC 0-5 (0-5) Urine WBC 0-5 (0-5) Ur Epithelial Cells Few Amorphous Sediment Not seen Urine Bacteria Not seen Urine Mucus Rare ANNIE Results - Last 24 hrs: Microbiology 06/18/16 14:39 Influenza Type A Antigen Screen - Final Nasopharyngeal Swab - Nare, Left NEGATIVE INFLUENZA A VIRUS AG Influenza Type B Antigen Screen - Final NEGATIVE INFLUENZA B VIRUS AG Med Orders - Current: Current Medications Acetaminophen (Tylenol Extra Strength) 500 - 1,000 mg PO Q6H PRN PRN Reason: Pain Last Admin: 06/19/16 08:50 Dose: 500 mg Albuterol (Proventil Neb Soln) 2.5 mg NEB Q4H PRN PRN Reason: Shortness of Breath Albuterol/Ipratropium (Duoneb 3.0-0.5 Mg/3 Ml) 3 ml INH QIDRT [facility] Last Admin: 06/19/16 14:51 Dose: 3 ml Apixaban (Eliquis) 5 mg PO DAILY [facility] Last Admin: 06/19/16 08:29 Dose: 5 mg Buspirone HCl (Buspar) 10 mg PO BID [facility] Last Admin: 06/19/16 08:29 Dose: 10 mg Digoxin (Lanoxin) 125 mcg PO DAILY@1300 [facility] Last Admin: 06/19/16 13:38 Dose: 125 mcg Flecainide Acetate (Tambocor) 100 mg PO BID [facility] Last Admin: 06/19/16 08:28 Dose: 100 mg Fludrocortisone Acetate (Florinef) 0.1 mg PO WITHBREAKFAST [facility] Last Admin: 06/19/16 08:30 Dose: 0.1 mg Dextrose/Sodium Chloride (Dextrose 5%-Normal Saline) 1,000 mls @ 75 mls/hr IV ASDIRECTED [facility] Last Admin: 06/19/16 05:19 Dose: 75 mls/hr Levalbuterol HCl (Xopenex) 1.25 mg NEB QIDRT [facility] Metoprolol Tartrate (Lopressor) 12.5 mg PO BID [facility] Last Admin: 06/19/16 08:41 Dose: 12.5 mg Tiotropium Hope (Spiriva Handihaler) 18 mcg INH DAILY@0700 [facility] Last Admin: 06/19/16 07:30 Dose: 18 mcg Discontinued Medications Fludrocortisone Acetate (Florinef) 0.1 mg PO ONETIME ONE Stop: 06/18/16 16:01 Last Admin: 06/18/16 15:50 Dose: 0.1 mg *Q Meaningful Use (DIS) - VTE *Q VTE Criteria *Q: - Stroke *Q Stroke Criteria *Q: - AMI *Q AMI Criteria *Q:
== END 2016-06-19 18:42 | disposition home or self-care (01) | DRG 204 ==
LOC: JP.MS 13:52
PROVIDERS: ADMIT Internal Medicine; ATTEND Internal Medicine
DX: J80 Acute respiratory distress syndrome (principal); Z87.891 Personal history of nicotine dependence; I95.9 Hypotension, unspecified; I10 Essential (primary) hypertension; I48.91 Unspecified atrial fibrillation; Z79.01 Long term (current) use of anticoagulants; J44.9 Chronic obstructive pulmonary disease, unspecified; M19.90 Unspecified osteoarthritis, unspecified site; Z91.030 Bee allergy status
CPT/HCPCS: 36415; 36600; 71020; 71020-26; 80053; 80162; 81001; 82803; 85025; 85027; 87804; 93005; 94640-76; 97162-GP; 97530-GP; 97535-GP; A9270-GY; J7620